=== PATIENT | female | born 1980 | race Caucasian/White ===

== ENCOUNTER 2019-01-14 12:31 | Outpatient (CLI) | payer OTHER ==
--- NOTE | 2019-01-14 15:27 | Mammography Report ---
Reason: RT BREAST LUMP Procedure Date: 01/14/2019 Accession Number: [id number] / [id number] Procedure: ETHAN - Diagnostic Dig Bilat CPT Code: FULL RESULT: EXAM: Diagnostic Dig Bilat DATE: 01/14/2019 2:02 PM CLINICAL HISTORY: Diagnostic exam. Palpable lump in the right axilla which gets inflamed when the patient works out. History of early menses. TECHNIQUE: Bilateral CC, MLO and right ML images are obtained in standard position and implant displaced position. COMPARISON: None FINDINGS: The breasts demonstrate extremely dense parenchyma bilaterally, limiting the sensitivity of mammography. Bilateral breast implants are intact. A biopsy marker is seen in the left breast. No suspicious architectural distortions, calcifications or masses are identified. Focused ultrasound of the right axillary region is performed. Normal axillary tissue and normal-appearing lymph nodes with preserved architecture and normal hilar blood flow on color Doppler are identified. The patient's palpable finding in the axilla corresponds to a normal-appearing lymph node. IMPRESSION: Benign findings RECOMMENDATION: Recommend routine annual Screening mammography unless otherwise clinically indicated. BIRADS CATEGORY 2: Benign findings STANDARD QUALIFYING STATEMENTS: 1. This examination was not reviewed with the aid of Computer-Aided Detection (CAD). 2. A negative or benign imaging report should not delay biopsy if clinically suspicious findings are present. Consider surgical consultation if warrented. More than 5% of cancers are not identified by imaging. 3. Dense breasts may obscure an underlying neoplasm. 4. This examination was reviewed with the aid of 3D imaging (tomography).
== END 2019-01-14 12:32 | disposition home or self-care (01) ==
LOC: DI 12:31
PROVIDERS: ATTEND Specialist
DX: Q85.01 Neurofibromatosis, type 1 (principal); N63.10 Unspecified lump in the right breast, unspecified quadrant; Z98.82 Breast implant status
CPT/HCPCS: 76642; 77062; 77066